=== PATIENT | female | born 1970 | race American Indian/Alaskan Native ===

== ENCOUNTER 2016-05-28 19:52 | Inpatient (IN) | payer MEDICAID ==
[~2016-05-28] VITALS: Ht 170.2 cm; Wt 70.4 kg
[~2016-05-28 19:52] MED LIST: DIVA500T52 PO; GABA300C PO; LEVO50 PO; QUET200T PO
[2016-05-28] MEDS ORDERED: GABA-531 PO (20:08)
[2016-05-28] MEDS ORDERED: CYCL10 PO (20:08)
[2016-05-28 21:15] LABS: BASOPHILS # (AUTO) 0.08 K/uL (0.00-0.20); BASOPHILS % (AUTO) 0.8 % (0.0-2.0); EOSINOPHILS # (AUTO) 0.13 K/uL (0.00-0.70); EOSINOPHILS % (AUTO) 1.19 % (1.0-6.0); HEMATOCRIT 37.6 % (36-46); HEMOGLOBIN 12.2 g/dL (12.0-16.0); LYMPHOCYTES % (AUTO) 37.2 % (22.0-44.0); MEAN CORPUSCULAR HEMOGLOBIN 28.3 pg (26.0-34.0); MEAN CORPUSCULAR HGB CONC 32.6 G/dL (31.0-37.0); MEAN CORPUSCULAR VOLUME 87 fL (80-100); MONOCYTES % (AUTO) 9.2 % (2.0-9.0); NEUTROPHILS # (AUTO) 5.6 K/uL (1.8-7.7); NEUTROPHILS % (AUTO) 51.6 % (40.0-70.0); PLATELET COUNT (AUTO) 432 K/uL (150-450); RED BLOOD CELL COUNT(AUTO) 4.33 MIL/uL (4.00-5.20); RED CELL DISTRIBUTION WIDTH 18.7 % (11.5-14.5); WHITE BLOOD COUNT (AUTO) 10.9 K/uL (4.5-11.0)
[2016-05-28 21:23] LABS: ANION GAP 3 mmol/L (8-16); CALCIUM, TOTAL 8.6 mg/dL (8.8-10.5); CARBON DIOXIDE 32 mmol/L (22-29); CHLORIDE 100 mmol/L (98-107); CREATININE 0.71 mg/dL (0.60-1.30); GLOMERULAR FILTR. RATE CALC > 60 mL/min (>60); POTASSIUM 4.2 mmol/L (3.5-5.1); SODIUM SERUM 135 mmol/L (136-145); UREA NITROGEN, BLOOD 6 mg/dL (7-18)
[2016-05-28 21:29] LABS: ALANINE AMINOTRANSFERASE 279 U/L (12-78); ASPARTATE AMINOTRANSFERASE 74 U/L (15-37); BILIRUBIN,TOTAL 1.5 mg/dL (0.1-1.0); TOTAL PROTEIN, SERUM 7.9 g/dL (6.4-8.2)
[2016-05-28] MEDS ORDERED: LORazepam 2 MG/ML VIAL IM ONE (22:00)
[2016-05-28] MEDS ORDERED: DiphenhydrAMINE HCL 50 MG/ML VIAL IM ONE (22:00)
[2016-05-28] MEDS ORDERED: HALOPERIDOL 5 MG TABLET PO PRN (22:15)
[2016-05-29 00:29] VITALS: BP 106/71
[2016-05-29 04:00] VITALS: BP 108/75
[2016-05-29] MEDS: LORazepam 2 MG TABLET PO PRN ×4 (04:00→17:55)
[2016-05-29 08:44] VITALS: BP 110/78
[2016-05-29] MEDS: BACITRACIN 28.4 GM OINTMENT TP SCH ×2 (11:24→16:54)
[2016-05-29] MEDS: GABAPENTIN 400 MG CAPSULE PO SCH ×2 (13:42→16:15)
[2016-05-29] MEDS ORDERED: ACETAMINOPHEN 325 MG TABLET PO PRN (14:30)
[2016-05-29 16:30] VITALS: BP 119/74
[2016-05-29 17:55] VITALS: BP 120/77
[2016-05-30 00:01] VITALS: BP 122/68
[2016-05-30] MEDS: ZOLPIDEM TARTRATE 10 MG TABLET PO PRN (00:02)
[2016-05-30 05:34] VITALS: BP 110/73
[2016-05-30] MEDS: LORazepam 2 MG TABLET PO PRN ×4 (05:40→22:00)
[2016-05-30 08:26] VITALS: BP 103/73
[2016-05-30] MEDS: GABAPENTIN 400 MG CAPSULE PO SCH ×3 (08:41→17:01)
[2016-05-30] MEDS: IBUPROFEN 600 MG TABLET PO PRN (08:42)
[2016-05-30] MEDS: CEPHALEXIN MONOHYDRATE 500 MG CAPSULE PO SCH ×4 (08:42→20:04)
[2016-05-30] MEDS: BACITRACIN 28.4 GM OINTMENT TP SCH ×2 (08:42→17:01)
[2016-05-30] MEDS: SULFAMETHOX/TRIMETH DS 800-160 MG/TABLET PO SCH ×2 (08:42→17:01)
[2016-05-30 16:09] VITALS: BP 102/68
[2016-05-31 00:37] VITALS: BP 107/67
[2016-05-31] MEDS: ZOLPIDEM TARTRATE 10 MG TABLET PO PRN ×2 (00:49→20:24)
[2016-05-31] MEDS: IBUPROFEN 600 MG TABLET PO PRN ×3 (05:23→14:30)
[2016-05-31] MEDS: LORazepam 2 MG TABLET PO PRN ×4 (06:01→18:26)
[2016-05-31] MEDS: CEPHALEXIN MONOHYDRATE 500 MG CAPSULE PO SCH ×4 (08:41→20:24)
[2016-05-31] MEDS: BACITRACIN 28.4 GM OINTMENT TP SCH ×2 (08:41→16:32)
[2016-05-31] MEDS: GABAPENTIN 400 MG CAPSULE PO SCH ×3 (08:41→16:30)
[2016-05-31 09:21] VITALS: BP 106/65
[2016-05-31] MEDS: SULFAMETHOX/TRIMETH DS 800-160 MG/TABLET PO SCH ×2 (10:02→16:30)
[2016-05-31 10:26] VITALS: BP 114/73
[2016-05-31 14:31] VITALS: BP 117/81
[2016-06-01 06:00] VITALS: BP 107/73
[2016-06-01] MEDS: LORazepam 2 MG TABLET PO PRN ×3 (06:10→14:10)
[2016-06-01] MEDS: IBUPROFEN 600 MG TABLET PO PRN (06:10)
[2016-06-01] MEDS: GABAPENTIN 400 MG CAPSULE PO SCH ×2 (08:27→12:12)
[2016-06-01] MEDS: BACITRACIN 28.4 GM OINTMENT TP SCH (08:28)
[2016-06-01] MEDS: CEPHALEXIN MONOHYDRATE 500 MG CAPSULE PO SCH ×2 (08:28→12:12)
[2016-06-01] MEDS: SULFAMETHOX/TRIMETH DS 800-160 MG/TABLET PO SCH (08:28)
[2016-06-01 08:29] VITALS: BP 102/60
[2016-06-01] MEDS ORDERED: BACTDSB PO (14:00)
[2016-06-01] MEDS ORDERED: GABA-533 PO (14:00)
[2016-06-01] MEDS ORDERED: CEPH500 PO (14:00)
[2016-06-03 05:43] LABS: HEPATITIS Bs ANTIGEN SCREEN P Negative (Negative); HEPATITIS C AB SCREEN >11.0 s/co ratio (0.0-0.9)
== END 2016-06-01 15:15 | disposition home or self-care (01) | DRG 750 ==
LOC: EMS 19:54 → B2S 22:00
PROVIDERS: ADMIT Psychiatry & Neurology Psychiatry; ATTEND Psychiatry & Neurology Psychiatry
DX: F25.9 Schizoaffective disorder, unspecified (principal); F22 Delusional disorders; F32.9 Major depressive disorder, single episode, unspecified; G40.909 Epilepsy, unspecified, not intractable, without status epilepticus; F10.10 Alcohol abuse, uncomplicated; M54.9 Dorsalgia, unspecified; E03.9 Hypothyroidism, unspecified; E78.5 Hyperlipidemia, unspecified; F17.210 Nicotine dependence, cigarettes, uncomplicated; F11.90 Opioid use, unspecified, uncomplicated; F41.9 Anxiety disorder, unspecified; F19.10 Other psychoactive substance abuse, uncomplicated; Z59.0 Homelessness; Z71.41 Alcohol abuse counseling and surveillance of alcoholic; Z71.51 Drug abuse counseling and surveillance of drug abuser; Z71.6 Tobacco abuse counseling
CPT/HCPCS: 80074; 96372; 99285; G0480; J1200; J2060

== ENCOUNTER 2016-05-30 10:10 | Emergency (ER) | payer MEDICAID ==
[~2016-05-30] VITALS: Ht 175.3 cm; Wt 68.2 kg
[~2016-05-30 10:10] MED LIST changes: +CYCL10 PO; -DIVA500T52 PO; +GABA-531 PO; -GABA300C PO; -LEVO50 PO; -QUET200T PO
[2016-05-30] MEDS ORDERED: POVIDONE-IODINE 10% 120 ML SOLUTION TP ONE (10:45)
[2016-05-30] MEDS ORDERED: LIDOCAINE HCL BUFFERED 1% W/EPI 1:100,000 20 ML VIAL INJ ONE (10:45)
[2016-05-30] MEDS ORDERED: KETOROLAC TROMETHAMINE 30 MG/ML VIAL IM ONE (10:45)
[2016-05-30] MEDS ORDERED: SULFAMETHOX/TRIMETH DS 800-160 MG/TABLET PO ONE (11:15)
[2016-05-30] MEDS ORDERED: CEPHALEXIN MONOHYDRATE 500 MG CAPSULE PO ONE (11:15)
[2016-05-30 12:16] VITALS: BP 112/76
== END 2016-05-30 12:24 | disposition other institution (70) ==
LOC: EMS 10:11
DX: L02.413 Cutaneous abscess of right upper limb (principal); F11.10 Opioid abuse, uncomplicated; F20.9 Schizophrenia, unspecified; F17.210 Nicotine dependence, cigarettes, uncomplicated; F32.9 Major depressive disorder, single episode, unspecified; F41.9 Anxiety disorder, unspecified; Z88.8 Allergy status to other drugs, medicaments and biological substances; Z88.1 Allergy status to other antibiotic agents
CPT/HCPCS: 10060; 96372; 99285; J1885; J3490